=== PATIENT | female | born 1995 | race Caucasian/White ===

== ENCOUNTER 2017-03-06 18:59 | Emergency (ER) | payer OTHER ==
[~2017-03-06] VITALS: Ht 160 cm; Wt 84.1 kg
[~2017-03-06 18:59] MED LIST: PRENTAB26 PO
[2017-03-06 19:04] VITALS: TEMP 36.9; Ht 160 cm; Wt 84.1 kg
[2017-03-06] MEDS ORDERED: DiphenhydrAMINE HCL 50 MG/ML VIAL IV STA (19:57)
[2017-03-06] MEDS ORDERED: KETOROLAC TROMETHAMINE 30 MG/ML VIAL IV STA (19:57)
[2017-03-06] MEDS ORDERED: PROCHLORPERAZINE 5 MG/ML 2 ML VIAL IV STA (19:57)
[2017-03-06] MEDS ORDERED: ESCI1TAB10 PO (20:16)
[2017-03-06 20:46] LABS: BASO % 0.7 %; BASO ABS # 0.04 K/uL (0-0.2); COMPLETE YES; EOS % 3.3 %; HEMATOCRIT 38.5 % (37-47); IG% 0.2 %; LYMPH % 36.9 %; LYMPH ABS # 2.12 K/uL (1.2-3.4); MEAN CELL VOLUME 83.2 fL (80-100); MEAN CORPUSCULAR HEMOGLOBIN 28.5 pg (25-34); MEAN CORPUSCULAR HGB CONC 34.3 g/dl (32-36); MEAN PLATELET VOLUME 10.1 fL (7.4-10.4); MONO % 7.7 %; NEUT % 51.2 %; PLATELET COUNT 227 K/uL (130-400); RED BLOOD COUNT 4.63 M/uL (4.2-5.4); WHITE BLOOD COUNT 5.75 K/uL (4.8-10.8)
--- NOTE | 2017-03-06 20:51 | EMERGENCY ROOM VISIT NOTE ---
History First contact with patient: 19:48 Chief Complaint: HEADACHE Stated Complaint: MIGRAINE History of Present Illness The patient is a 21 year old female who presents to the Emergency Room with complaints of a migraine headache. The patient states that she has had a migraine headache she began yesterday. Headache has been gradually worsening. She does have a history of migraines, but states they are usually not this bad. This is not the worst headache of her life. She has taken Excedrin Migraine without relief. She is nauseous, but has not had any vomiting. She rates her discomfort a 5/10. The patient states that she has had 2 panic attacks in the past 2 days which have made her headache worse. She is on a daily medication for anxiety and recently had the dose of this increased. She denies any neck stiffness, fevers/chills, recent illness, numbness, weakness, blurred vision or slurred speech. Review of Systems A complete 10 point review of systems was reviewed with the patient with pertinent positives and negatives as per history of present illness. All else were negative. Past Medical/Surgical History Medical Problems: (1) Abdominal pain in female patient (2) Allergic reaction (3) Elective (4) Head injury (5) Nasal contusion (6) term pregnacy in labor (7) Uterine contractions at greater than 20 weeks of gestation Surgical Problems: (1) Hx of tonsillectomy Family History Diabetes mellitus FH: cancer Hypertension Kidney disease Kidney stones Seizures Social History Smoking Status: Never Smoker Alcohol Use: none Drug Use: none Housing Status: lives with family Occupation Status: employed Current/Historical Medications Scheduled Escitalopram Oxalate (Lexapro), 20 MG PO DAILY Physical Exam Vital Signs Date Time Temp Pulse Resp B/P (MAP) Pulse Ox O2 Delivery O2 Flow Rate FiO2 03/06/17 22:12 76 118/74 97 03/06/17 21:30 69 16 113/72 99 Room Air 03/06/17 19:04 36.9 92 18 139/90 98 Room Air Physical Exam VITALS: Vitals are noted on the nurse's note and reviewed by myself. Vital signs stable. GENERAL: This is a 21-year-old female, in no acute distress, nondiaphoretic, well-developed well-nourished. HEAD: Normocephalic atraumatic. EARS: External auditory canals clear, tympanic membranes pearly norton without erythema or effusion bilaterally. EYES: Pupils equal round and reactive to light and accommodation. Conjunctivae without injection, sclerae without icterus. Extraocular movements intact. MOUTH: Mucous membranes moist. Tonsils are not enlarged. Pharynx without erythema or exudate. NECK: Supple without nuchal rigidity. No lymphadenopathy. HEART: Regular rate and rhythm without murmurs gallops or rubs. LUNGS: Clear to auscultation bilaterally without wheezes, rales or rhonchi. MUSCULOSKELETAL: Strength 5/5 throughout. NEURO: Patient was alert and oriented to person place and time. Normal sensation to light and sharp touch. No focal neurological deficits. Medical Decision & Procedures Laboratory Results 03/06/17 20:20 Red Blood Count 4.63, Mean Corpuscular Volume 83.2, Mean Corpuscular Hemoglobin 28.5, Mean Corpuscular Hemoglobin Concent 34.3, Mean Platelet Volume 10.1, Neutrophils (%) (Auto) 51.2, Lymphocytes (%) (Auto) 36.9, Monocytes (%) (Auto) 7.7, Eosinophils (%) (Auto) 3.3, Basophils (%) (Auto) 0.7, Neutrophils # (Auto) 2.95, Lymphocytes # (Auto) 2.12, Monocytes # (Auto) 0.44, Eosinophils # (Auto) 0.19, Basophils # (Auto) 0.04 03/06/17 20:20 Test 03/06/17 20:20 White Blood Count 5.75 K/uL (4.8-10.8) Red Blood Count 4.63 M/uL (4.2-5.4) Hemoglobin 13.2 g/dL (12.0-16.0) Hematocrit 38.5 % (37-47) Mean Corpuscular Volume 83.2 fL (80-100) Mean Corpuscular Hemoglobin 28.5 pg (25-34) Mean Corpuscular Hemoglobin Concent 34.3 g/dl (32-36) Platelet Count 227 K/uL (130-400) Mean Platelet Volume 10.1 fL (7.4-10.4) Neutrophils (%) (Auto) 51.2 % Lymphocytes (%) (Auto) 36.9 % Monocytes (%) (Auto) 7.7 % Eosinophils (%) (Auto) 3.3 % Basophils (%) (Auto) 0.7 % Neutrophils # (Auto) 2.95 K/uL (1.4-6.5) Lymphocytes # (Auto) 2.12 K/uL (1.2-3.4) Monocytes # (Auto) 0.44 K/uL (0.11-0.59) Eosinophils # (Auto) 0.19 K/uL (0-0.5) Basophils # (Auto) 0.04 K/uL (0-0.2) RDW Standard Deviation 38.6 fL (36.4-46.3) RDW Coefficient of Variation 12.8 % (11.5-14.5) Immature Granulocyte % (Auto) 0.2 % Immature Granulocyte # (Auto) 0.01 K/uL (0.00-0.02) Anion Gap 9.0 mmol/L (3-11) Est Creatinine Clear Calc Drug Dose 103.3 ml/min Estimated GFR () 108.8 Estimated GFR (Non- 93.9 BUN/Creatinine Ratio 13.9 (10-20) Calcium Level 8.9 mg/dl (8.5-10.1) Total Bilirubin 0.3 mg/dl (0.2-1) Aspartate Amino Transf (AST/SGOT) 17 U/L (15-37) Alanine Aminotransferase (ALT/SGPT) 34 U/L (12-78) Alkaline Phosphatase 54 U/L (45-117) Total Protein 7.4 gm/dl (6.4-8.2) Albumin 3.7 gm/dl (3.4-5.0) Globulin 3.7 gm/dl (2.5-4.0) Albumin/Globulin Ratio 1.0 (0.9-2) Human Chorionic Gonadotropin, Qual NEG (NEG) Medications Administered Medications (Trade) Dose Ordered Sig/Andreas Route Start Time Stop Time Status Last Admin Dose Admin Ketorolac Tromethamine (Toradol Inj) 30 mg NOW STAT IV 03/06/17 19:57 03/06/17 19:59 DC 03/06/17 20:39 30 MG Diphenhydramine HCl (Benadryl Inj) 25 mg NOW STAT IV 03/06/17 19:57 03/06/17 19:59 DC 03/06/17 20:38 25 MG Prochlorperazine Edisylate (Compazine Inj) 10 mg NOW STAT IV 03/06/17 19:57 03/06/17 19:59 DC 03/06/17 20:38 10 MG ED Course The patient was evaluated as above. Labs were drawn and IV access was obtained. Patient was medicated with Compazine, Benadryl and Toradol. Patient was reevaluated and had complete resolution of her symptoms. Discharge instructions were reviewed with the patient. The patient verbalized understanding of my assessment and treatment plan and was discharged home in good condition. Medical Decision The differential diagnosis includes acute intracranial bleed, meningitis, encephalitis, mass or mass effect, sinusitis, infection, tumor, headache, temporal arteritis and carbon monoxide exposure, and migraine. The patient is a 21-year-old female who presents today complaining of a migraine headache. There is nothing to suggest an infectious process on exam. This is not the worst headache of the patient's life. Labs are unremarkable. She had complete resolution of the pain after treatment with Compazine, Benadryl and Toradol. She was referred back to her primary care provider for further evaluation of her headaches. Impression Primary Impression: Headache Departure Information Dispostion Home / Self-Care Condition GOOD Referrals Alycia Brunner D.O. (PCP) Patient Instructions [facility] Additional Instructions You have been treated in the Emergency Department for a Headache. You have received pain medicine in the emergency department which impairs your ability to operate a vehicle. It is illegal for you to drive after receiving these medicines. For pain control, you can use the following [id number] medicines (if >12 yo): - Regular strength (325mg/tab) Tylenol (acetaminophen) 2 tabs every 4-6 hours as needed. Do not exceed 12 tablets in a 24 hour period. Avoid taking more than 4 grams (4000 mg) of Tylenol per day. This includes any other sources of acetaminophen you may take on a regular basis. - Regular strength (200 mg/tab) Advil (ibuprofen) 1-2 tabs every 4-6 hours as needed. Do not exceed a dose of 3200 mg per day. You should relax in a quiet, dark place for the rest of the day. Avoid any possible triggers including: cigarette smoke, caffeine, nicotine, chocolate, wine, beer, loud noises or music, or bright lights. You should schedule a follow-up appointment in 2-3 days with your Primary Care Provider or established Neurologist for further evaluation and treatment of your Headache. Return to the Emergency Department if your current symptoms worsen despite treatment course outlined above, or if you develop any of the following symptoms : intractable pain despite aforementioned treatment course, visual disturbances , loss of vision, unilateral weakness or facial drooping, slurring of speech, loss of coordination, or loss of consciousness.
[2017-03-06 21:02] LABS: PREG INTERNAL NEGATIVE QC NEG CLEAR BACKGROUND; PREG INTERNAL POSITIVE QC POS CONTROL LINE
[2017-03-06 21:03] LABS: BUN/CREATININE RATIO 13.9 (10-20); CALCIUM 8.9 mg/dl (8.5-10.1); CREATININE 0.87 mg/dl (0.60-1.20)
[2017-03-06 22:12] VITALS: BP 118/74; PULSE 76; O2SAT 97
== END 2017-03-06 22:13 | disposition home or self-care (01) ==
LOC: C.EDB 19:01 → C.EDA 22:13
DX: R51 Headache (principal); Z87.828 Personal history of other (healed) physical injury and trauma; Z98.890 Other specified postprocedural states; Z79.899 Other long term (current) drug therapy; Z83.3 Family history of diabetes mellitus; Z80.9 Family history of malignant neoplasm, unspecified; Z82.49 Family history of ischemic heart disease and other diseases of the circulatory system; Z84.1 Family history of disorders of kidney and ureter; Z82.0 Family history of epilepsy and other diseases of the nervous system

== ENCOUNTER 2017-03-13 09:37 | Emergency (ER) | payer OTHER ==
[~2017-03-13] VITALS: Ht 160 cm; Wt 81.8 kg
[~2017-03-13 09:37] MED LIST changes: +ESCI1TAB10 PO; -PRENTAB26 PO
[2017-03-13 09:41] VITALS: TEMP 36.9; Ht 160 cm; Wt 81.8 kg
--- NOTE | 2017-03-13 11:17 | DIAGNOSTIC IMAGING REPORT ---
CHEST ONE VIEW PORTABLE CLINICAL HISTORY: Fatigue. Possible syncope. COMPARISON STUDY: Chest radiograph February 02, 2013. FINDINGS: Lung volumes are normal. No pneumothorax or pleural effusion is present. Pulmonary vascularity is normal. Cardiomediastinal silhouette is normal. There is no consolidation. IMPRESSION: No acute cardiopulmonary findings. Electronically signed by: Sha Hobbs M.D. 03/13/2017 11:16 AM Dictated Date/Time: 03/13/2017 11:15 AM
--- NOTE | 2017-03-13 11:23 | DIAGNOSTIC IMAGING REPORT ---
CT SCAN OF THE BRAIN WITHOUT IV CONTRAST CLINICAL HISTORY: Headache. COMPARISON STUDY: CT of the brain dated 09/29/2013. TECHNIQUE: Unenhanced axial CT scan of the brain is performed from the vertex to the skull base. A dose lowering technique was utilized adhering to the principles of ALARA. CT DOSE: 679.75 mGycm FINDINGS: Brain parenchyma: The brain parenchyma is normal in appearance. There is no hemorrhage, mass effect, or evidence of acute territorial ischemia by CT criteria. Castellanos-white matter is preserved. No extra-axial fluid collection is seen. Ventricles, sulci, cisterns: Normal in configuration. Intracranial vasculature: The visualized intracranial vasculature at the skull base is normal in appearance. Calvarium: Unremarkable. Sinuses and mastoids: The visualized paranasal sinuses are clear. The mastoid air cells are well pneumatized. Orbits: The bony orbits are grossly intact. IMPRESSION: No acute intracranial abnormality. Electronically signed by: Paco Moreira M.D. 03/13/2017 11:21 AM Dictated Date/Time: 03/13/2017 11:20 AM
[2017-03-13] MEDS ORDERED: ONDA4TAB9 PO (11:46)
[2017-03-13] MEDS ORDERED: IMT50 PO (11:46)
[2017-03-13] MEDS ORDERED: SERT1TAB88 PO (11:46)
[2017-03-13 13:08] LABS: POINT OF CARE TROPONIN I < 0.030 ng/ml (0-0.045)
[2017-03-13 13:13] LABS: BENZODIAZEPINE, URINE NEG (NEG); COCAINE,URINE NEG (NEG); PHENCYCLIDINE, URINE NEG (NEG)
[2017-03-13] MEDS ORDERED: OPTIRAY 320 IV PRN (13:30)
--- NOTE | 2017-03-13 14:41 | DIAGNOSTIC IMAGING REPORT ---
CT ANGIOGRAM OF THE CHEST CLINICAL HISTORY: Atypical chest pain. Positive d-dimer. SYNCOPE COMPARISON STUDY: Chest x-ray dated 03/13/2017 TECHNIQUE: Following the IV administration of 89 mL of Optiray-320, CT angiogram of the thorax was performed from the thoracic inlet to the lung bases utilizing the pulmonary embolus protocol. Images are reviewed in the axial, sagittal, and coronal planes. IV contrast was administered without complication. MIP imaging was performed. A dose lowering technique was utilized adhering to the principles of ALARA. CT DOSE: 390.92 mGycm FINDINGS: No pathologically enlarged axillary mediastinal or hilar lymph nodes were visualized. There was no evidence of thoracic aortic dilatation. There were no pulmonary artery filling defects to indicate acute pulmonary embolism. No pleural effusions are visualized. There was no evidence of focal pulmonary consolidation. IMPRESSION: 1. No acute intrathoracic findings 2. No evidence of acute pulmonary embolism 3. No evidence of focal pulmonary consolidation Electronically signed by: Michael Webb M.D. 03/13/2017 2:40 PM Dictated Date/Time: 03/13/2017 2:38 PM
[2017-03-13 14:46] VITALS: BP 132/89; PULSE 69; O2SAT 96
[2017-03-13] MEDS ORDERED: PRED10TA PO (15:04)
--- NOTE | 2017-03-13 15:06 | EMERGENCY ROOM VISIT NOTE ---
History First contact with patient: 09:53 Chief Complaint: HEAD PAIN Stated Complaint: HEAD PAIN History of Present Illness The patient is a 21 year old female who presents to the Emergency Room, ambulatory, with her , in tears, with complaints of extreme fatigue over the past week. The patient states she was here one week ago complaining of a migraine,. The history was very difficult to elicit, as the patient's states "she is here for the same thing she was here for 3 days ago. I advised the patient's immediately that I do need to elicit a separate history, as the provider that saw her last week. I did discuss with him that the patient was here one week ago, and not 3 days ago, and I needed to determine what was different or changed the proximal her in today. The patient states over the past week, since she was here, she has been experiencing intermittent migraines, head pain, and extreme fatigue. She states she has been falling asleep very frequently, and has having difficulty staying awake. She was here 7 days ago, when she was treated for migraine. She states she did feel significantly better that day, and saw a provider the next day. The patient is uncertain if she saw neurology or her PCP or another provider, but states she believes it was neurology. She states an MRI was ordered, but she was unable to have this scheduled for 1 month. She states she did have more lab work ordered, and was told that labs were overall normal. Of note, I did attempt to consult with the [facility] neurologist, and Dr. Herrera did state that the patient was not seen by neurology, that she was seen by internal medicine. The patient states overall, she was feeling well Monday, but on , she began experiencing a headache. She states she called her PCPs office, when she spoke with a nurse on . She was advised to come into the office to have a Toradol injection to help with her headache. The patient states she then began feeling well Monday, although she did sleep most of the day. On Monday, the patient states she went to work. 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 She states she began experiencing some minimal chest discomfort and overall was not feeling well while at work. She states she did experience a headache, and took Excedrin, vitamin B, magnesium, and "some prescription from my doctor". The patient is uncertain what medications she is on. The patient states when she got home, she took all of these medications, and went to bed. On Monday, the patient awoke feeling okay. She states she went to work, when she was very very tired. The patient states approximately midday, she sat down to rest, when her head began feeling sore. She states the discomfort is not the same as the migraines she had been experiencing. She states she took some vitamins, her anxiety medicine, and Excedrin on Monday morning. 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 While at her mother's, the patient states she fell asleep. The patient's mother states the patient was difficult to arouse, and she moved from the bed to the bathroom floor, but was unable to remember making this change. The patient's mother states she was unable to awaken the patient, and suspected a syncopal episode. Now, the patient states she is experiencing extreme fatigue, her head hurts overall, and she describes the discomfort as a tightness and soreness. She states she is not experiencing a migraine. The patient denies any nausea, vomiting, chest pain, dyspnea, diarrhea, constipation, abdominal pain, or upper respiratory infection symptoms. She states she has been experiencing intermittent confusion, and is forgetting what she is doing while she is doing it. The patient states she did not remember that she was at her mother's house last evening, and she is occasionally experiencing some blurry vision. She also complains of a runny nose and decreased appetite. The patient states her last menstrual period is unknown, as she does have a Mirena. The Mirena was placed 2 years ago, and she does have irregular periods since then. Throughout the examination, the patient is extremely tearful and is unable to provide a very thorough history. Much of history comes from the patient's and mother. The patient's mother did request that the patient be admitted "for testing". They're concerned due to the patient's symptoms, that there is something seriously wrong. Review of Systems A complete 10 point review of systems was reviewed with the patient with pertinent positives and negatives as per history of present illness. All else were negative. Past Medical/Surgical History Medical Problems: (1) Abdominal pain in female patient (2) Allergic reaction (3) Elective (4) Head injury (5) Nasal contusion (6) term pregnacy in labor (7) Uterine contractions at greater than 20 weeks of gestation Surgical Problems: (1) Hx of tonsillectomy Family History Diabetes mellitus FH: cancer Hypertension Kidney disease Kidney stones Seizures Social History Smoking Status: Current Every Day Smoker Alcohol Use: none Drug Use: none Housing Status: lives with family Occupation Status: employed Current/Historical Medications Scheduled Prednisone Tab (Prednisone), 30 MG PO QD Sertraline HCl (Sertraline HCl), 1 TAB PO DAILY Sumatriptan Succinate (Sumatriptan Succinate), 1 TAB PO UD Scheduled PRN Ondansetron (Ondansetron HCl), 1 TAB PO Q6H PRN for Nausea Physical Exam Vital Signs Date Time Temp Pulse Resp B/P (MAP) Pulse Ox O2 Delivery O2 Flow Rate FiO2 03/13/17 14:46 69 16 132/89 96 Room Air 03/13/17 13:01 74 18 118/79 94 Room Air 03/13/17 11:08 71 16 136/87 98 Room Air 03/13/17 09:41 36.9 82 18 156/89 98 Room Air Physical Exam VITALS: Vitals are noted on the nurse's note and reviewed by myself. Vital signs stable. GENERAL: This is a 21-year-old white female, in no acute distress, but crying, nondiaphoretic, well-developed well-nourished. SKIN: The skin was without rashes, erythema, edema, or bruising. There is no tenting of the skin. Capillary reflex less than 2 seconds. HEAD: Normocephalic atraumatic. EARS: External auditory canals clear, tympanic membranes pearly castellanos without erythema or effusion bilaterally. EYES: Pupils equal round and reactive to light and accommodation. Conjunctivae without injection, sclerae without icterus. Extraocular movements intact, no nystagmus. NOSE: Patent, turbinates without inflammation or discharge. No sinus tenderness. MOUTH: Mucous membranes moist. Tonsils are not enlarged. Pharynx without erythema or exudate. Uvula midline. Airway patent. Tongue does not deviate. NECK: Supple without nuchal rigidity. No lymphadenopathy. No thyromegaly. Cervical spine is nontender. No JVD. HEART: Regular rate and rhythm without murmurs gallops or rubs. LUNGS: Clear to auscultation bilaterally without wheezes, rales or rhonchi. No dullness to percussion. No retractions or accessory muscle use. ABDOMEN: Positive bowel sounds x 4. Normal tympanic percussion. Soft, nontender, without masses or organomegaly. Saldivar sign negative. No guarding or rebound tenderness. MUSCULOSKELETAL: No muscle atrophy, erythema, or edema noted. Full range of motion without joint tenderness in all extremities. No tenderness to palpation. Normal gait. Strength 5/5 throughout. NEURO: Patient was alert and oriented to person place and time. Normal sensation to light and sharp touch. Deep tendon reflexes 2+ throughout. No focal neurological deficits. Medical Decision & Procedures ER Provider Diagnostic Interpretation: Urine drug screen was negative Urine dipstick was negative for signs of infection. Urine test was negative. POC troponin testing was negative. POC d-dimer testing was elevated greater than 450. CT ANGIOGRAM OF THE CHEST CLINICAL HISTORY: Atypical chest pain. Positive d-dimer. SYNCOPE COMPARISON STUDY: Chest x-ray dated 03/13/2017 TECHNIQUE: Following the IV administration of 89 mL of [id number]-320, CT angiogram of the thorax was performed from the thoracic inlet to the lung bases utilizing the pulmonary embolus protocol. Images are reviewed in the axial, sagittal, and coronal planes. IV contrast was administered without complication. MIP imaging was performed. A dose lowering technique was utilized adhering to the principles of ALARA. CT DOSE: 390.92 mGycm FINDINGS: No pathologically enlarged axillary mediastinal or hilar lymph nodes were visualized. There was no evidence of thoracic aortic dilatation. There were no pulmonary artery filling defects to indicate acute pulmonary embolism. No pleural effusions are visualized. There was no evidence of focal pulmonary consolidation. IMPRESSION: 1. No acute intrathoracic findings 2. No evidence of acute pulmonary embolism 3. No evidence of focal pulmonary consolidation Electronically signed by: Michael Webb M.D. 03/13/2017 2:40 PM Dictated Date/Time: 03/13/2017 2:38 PM CHEST ONE VIEW PORTABLE CLINICAL HISTORY: Fatigue. Possible syncope. COMPARISON STUDY: Chest radiograph February 02, 2013. FINDINGS: Lung volumes are normal. No pneumothorax or pleural effusion is present. Pulmonary vascularity is normal. Cardiomediastinal silhouette is normal. There is no consolidation. IMPRESSION: No acute cardiopulmonary findings. Electronically signed by: hSa Hobbs M.D. 03/13/2017 11:16 AM Dictated Date/Time: 03/13/2017 11:[address] SCAN OF THE BRAIN WITHOUT IV CONTRAST CLINICAL HISTORY: Headache. COMPARISON STUDY: CT of the brain dated 09/29/2013. TECHNIQUE: Unenhanced axial CT scan of the brain is performed from the vertex to the skull base. A dose lowering technique was utilized adhering to the principles of ALARA. CT DOSE: 679.75 mGycm FINDINGS: Brain parenchyma: The brain parenchyma is normal in appearance. There is no hemorrhage, mass effect, or evidence of acute territorial ischemia by CT criteria. Castellanos-white matter is preserved. No extra-axial fluid collection is seen. Ventricles, sulci, cisterns: Normal in configuration. Intracranial vasculature: The visualized intracranial vasculature at the skull base is normal in appearance. Calvarium: Unremarkable. Sinuses and mastoids: The visualized paranasal sinuses are clear. The mastoid air cells are well pneumatized. Orbits: The bony orbits are grossly intact. IMPRESSION: No acute intracranial abnormality. Electronically signed by: Paco Moreira M.D. 03/13/2017 11:21 AM Dictated Date/Time: 03/13/2017 11:20 AM Laboratory Results Test 03/13/17 10:51 03/13/17 12:48 Urine Opiates Screen NEG (NEG) Urine Methadone, Qualitative NEG (NEG) Urine Barbiturates NEG (NEG) Urine Phencyclidine (PCP) Level NEG (NEG) Ur Amphetamine/Methamphetamine NEG (NEG) MDMA (Ecstasy) Screen NEG (NEG) Urine Benzodiazepines Screen NEG (NEG) Urine Cocaine Metabolite NEG (NEG) Urine Marijuana (THC) NEG (NEG) Bedside D-Dimer > 450 ng/mlFEU (0-450) Bedside Troponin I < 0.030 ng/ml (0-0.045) ECG Indication: syncope Rate (beats per minute): 70 Rhythm: normal sinus Findings: no acute ischemic change Medical Decision The patient was seen and evaluated as above. I did offer to perform a CT scan, as the patient is not having acute neurological symptoms which would warrant an MRI. The patient's mother is in agreement with this plan, and was like the imaging performed. I did also order urinalysis and urine test as part of the initial evaluation. Due to the uncertainty of whether or not the patient has been experiencing syncopal episodes, a chest x-ray was also ordered. All of this testing was negative. I did review the documentation the patient's nurse practitioner who states she saw last week. Review labs which were performed at that time, which included a negative magnesium, Lyme disease, sedimentation rate, CBC, and CMP. I discussed all the findings with the patient 's family at bedside. The patient was currently sleeping and unable to be aroused at this time. I did consult with [facility] neurology, Dr. Ag, the patient believes she saw the neurologist regarding her symptoms last week. Dr. Ag states her office did not actually see the patient, and states the patient actually saw an internal medicine nurse practitioner. Dr. Ag was very helpful on the phone, and allowed me to discuss the case with her. She did recommend a prednisone taper for a few days regarding the migraines and headache with PCP follow-up and possibly neurology consult. She did not feel that it sounds like the patient needs an emergent MRI. I spoke with Dr. Kuhn who did recommend a D-Dimer, Troponin, and basic cardiac work-up to ensure there is no cardiac etiology/PE. These tests were ordered. I did also add a urine drug screen to ensure no other cause for the patient's symptoms. D-Dimer was positive, so CTA for PE was ordered, which was negative for PE. When I reentered the room, the patient's family was no longer present. The patient was awake, alert, and more talkative than she had been throughout the entire visit to the emergency department. She is using her cell phone. The patient states she was feeling very well, and was ready to go home. I discussed with her that I would like her to follow up closely outpatient, and she states this sounds reasonable. I left to work on discharge papers, did return to the room approximately another half an hour later. The patient was still awake, alert, sitting upright , and appeared to be perfectly fine. She is not complaining of any symptoms at this time. Discharge instructions reviewed and the patient was discharged home in good condition. Differential diagnosis includes PE, CVA, TIA, migraine, atypical migraine, seizures, malignancy, intracranial hemorrhage, fracture, cardiac disease, psychological disorder, malingering, and others. Based on the patient's symptoms and complete resolution of all symptoms after her family left, I do suspect a psychological component to her case. They did call to speak with the patient's stress practitioner, Leann Galvin, regarding the patient's case. I advised her of the findings here in the emergency department. The son states that while in the office last week, the patient was complaining of mostly anxiety and panic attacks associated with the headaches. It does sound that symptoms have been varying over the past week, and she has now seen three different providers with multiple different symptoms. I suspect a psychological component to the patient's symptoms, and did relay this to the nurse practitioner. She states she did encourage the patient to follow-up with her own PCP, but notes the patient does not have an appointment scheduled until May. Medication Reconcilliation Current Medication List: was personally reviewed by me Blood Pressure Screening Patient's blood pressure: Normal blood pressure Impression Primary Impression: Headache Additional Impression: Fatigue Departure Information Dispostion Home / Self-Care Condition GOOD Prescriptions Prednisone Tab (PREDNISONE) 10 Mg Tab 30 MG PO QD for 3 Days, #18 TAB 30mg (3 tabs) PO daily x3 days, then 20mg (2 tabs) PO daily x3 days, then 10 mg (1 tab) PO daily x3 days, then stop. Prov: Yamile Carver PA-C 03/13/17 Referrals No Doctor, Assigned (PCP) Patient Instructions ED Headache Migraine, Fatigue Manage, My [facility] Additional Instructions You were seen in the emergency department stay for fatigue. I did review your previous labs, which were normal. Labs and imaging here in the ED do not reveal any acute, concerning findings. You have been prescribed Prednisone. This is a steroid which will help decrease your inflammation, redness, and itch. Take this medicine as prescribed. Take the ENTIRE 4 day course. It is best to take steroids early in the morning as PM dosing can affect your sleeping patterns. Please follow-up closely with your PCP and consider neurology consultation. Return to the ED for worsening symptoms including syncope, headache, confusion, dizziness, paresthesias, weakness, or other concerning symptoms. Problem Qualifiers Primary Impression: Headache Headache type: unspecified Headache chronicity pattern: acute headache Intractability: not intractable Qualified Codes: R51 - Headache Additional Impression: Fatigue Fatigue type: unspecified Qualified Codes: R53.83 - Other fatigue
== END 2017-03-13 15:30 | disposition home or self-care (01) ==
LOC: C.EDB 09:38
DX: R51 Headache (principal); R53.83 Other fatigue; G43.909 Migraine, unspecified, not intractable, without status migrainosus; F17.200 Nicotine dependence, unspecified, uncomplicated; Z79.3 Long term (current) use of hormonal contraceptives; Z97.5 Presence of (intrauterine) contraceptive device; Z83.3 Family history of diabetes mellitus; Z82.49 Family history of ischemic heart disease and other diseases of the circulatory system; Z84.1 Family history of disorders of kidney and ureter; Z82.0 Family history of epilepsy and other diseases of the nervous system